=== PATIENT | female | born 1980 | race Caucasian/White ===

== ENCOUNTER 2025-09-11 08:55 | Emergency (ER) | payer OTHER ==
[2025-09-11 09:28] LABS: #Basophils Less than 0.03 10x3/uL (0.0-0.2); #Eosinophils 0.03 10x3/uL (0.0-0.5); #Monocytes 0.21 10x3/uL (0.0-1.1); #Neutrophils 5.17 10x3/uL (1.5-8.4); %Basophils 0.3 % (0.0-2.0); %Eosinophils 0.5 % (0.0-6.0); %Lymphocytes 17.2 % (18.0-47.0); %Monocytes 3.2 % (0.0-10.0); %Neutrophils 78.6 % (40.0-75.0); Hematocrit 38.1 % (34.9-44.5); Hemoglobin 13.7 g/dL (12.0-15.5); Mean Corpuscular Hemoglobin 31.1 pg (27.0-33.0); Mean Corpuscular Volume 86.4 fL (81.6-98.3); Platelet Count 283 10x3/uL (150-450); Red Blood Cell (RBC) Count 4.41 10x6/uL (3.90-5.03); White Blood Cell (WBC) Count 6.57 10x3/uL (3.5-10.5)
[2025-09-11 09:48] LABS: ALT (SGPT) 66 U/L (Less than 34); AST (SGOT) 56 U/L (11-34); Albumin 4.4 g/dL (3.1-4.5); Alkaline Phosphatase 44 U/L (40-110); Anion Gap 17 mmol/L (10-20); BUN (Urea Nitrogen) 11 mg/dL (7.0-18.7); Bilirubin, Total 0.3 mg/dL (0.3-1.2); Calc. Creatinine Clearance 0 mL/min (70-130); Calcium 9.2 mg/dL (7.8-10.44); Carbon Dioxide 17 mmol/L (22-29); Chloride 108 mmol/L (98-107); Globulin 3.1 g/dL (2.4-3.5); Glucose 98 mg/dL (70-105); Potassium 4.6 mmol/L (3.5-5.1); Sodium 137 mmol/L (136-145)
[2025-09-11 09:56] LABS: Troponin I 0.016 ng/mL (< 0.028)
[2025-09-11 12:56] LABS: Troponin I Less than 0.010 ng/mL (< 0.028)
== END 2025-09-11 14:16 | disposition home or self-care (01) ==
LOC: CSHERS 08:55
DX: R00.2 Palpitations (principal); R00.0 Tachycardia, unspecified
CPT/HCPCS: 36415; 71045; 80053; 84484; 85025; 85379; 93005